=== PATIENT | female | born 1990 | race African-American/Black ===

== ENCOUNTER 2017-03-16 13:22 | Outpatient (CLI) | payer MEDICAID ==
[2017-03-16 14:08] LABS: ADD MAN DIFF? NO
[2017-03-16 14:11] LABS: BASOPHILS % 0.4 % (0.0-2.0); EOSINOPHILS % 0.4 % (0.0-7.0); HEMATOCRIT 32.3 % (37.0-47.0); LYMPHOCYTES # 1.5 10^3/ul (0.8-2.9); LYMPHOCYTES % 16.7 % (15.0-51.0); MEAN CORPUSCULAR HEMOGLOBIN 30.1 pg (29.0-33.0); MEAN CORPUSCULAR HGB CONC 34.1 g/dl (32.0-37.0); MEAN CORPUSCULAR VOLUME 88.3 fl (82.0-101.0); MEAN PLATELET VOLUME 11.3 fl (7.4-10.4); MONOCYTE # 0.7 10^3/ul (0.3-0.9); MONOCYTES % 7.7 % (0.0-11.0); NEUTROPHIL # 6.6 10^3/ul (1.6-7.5); NEUTROPHILS % 73.9 % (39.0-77.0); PLATELET COUNT 220 10^3/UL (140-415); RED BLOOD COUNT 3.66 10^6/ul (4.20-5.40); RED CELL DISTRIBUTION WIDTH 14.2 % (11.5-14.5)
[2017-03-16 14:11] LABS: WHITE BLOOD COUNT 8.9 10^3/ul (4.8-10.8)
[2017-03-16 14:21] LABS: INR 0.93; PROTIME 12.5 Sec (11.9-14.9)
[2017-03-16 14:22] LABS: ADD UMIC NO; PARTIAL THROMBOPLASTIN TIME 28.6 Sec (25.0-35.0); UR ASCORBIC ACID NEGATIVE (NEGATIVE); UR BACTERIA FEW /HPF (NONE SEEN); UR BILIRUBIN (Dip) NEGATIVE (NEGATIVE); UR BLOOD (Dip) NEGATIVE (NEGATIVE); UR CLARITY SLIGHTLY CLOUDY (CLEAR); UR COLOR YELLOW (YELLOW); UR GLUCOSE (Dip) NEGATIVE (NEGATIVE); UR KETONES (Dip) NEGATIVE (NEGATIVE); UR LEUKOCYTE ESTERASE (Dip) NEGATIVE Leu/ul (NEGATIVE); UR NITRITE (Dip) NEGATIVE (NEGATIVE); UR RBC 1 /HPF (0-5); UR SPECIFIC GRAVITY (Dip) 1.008 (1.003-1.030); UR SQUAMOUS EPITHELIAL CELL MODERATE /HPF (FEW); UR TOTAL PROTEIN (Dip) NEGATIVE (NEGATIVE); UR UROBILINOGEN (Dip) NEGATIVE (NEGATIVE); UR WBC 2 /HPF (0-5)
[2017-03-16 14:25] LABS: ALANINE AMINOTRANSFERASE 34 IU/L (13-69); ALBUMIN 3.2 g/dl (3.3-4.9); ALBUMIN/GLOBULIN RATIO 0.88; ALKALINE PHOSPHATASE 150 IU/L (42-121); ANION GAP 15 (8-16); ASPARTATE AMINO TRANSFERASE 23 IU/L (15-46); BILIRUBIN,INDIRECT 0.3 mg/dl (0-1.1); BILIRUBIN,TOTAL 0.3 mg/dl (0.2-1.3); BLOOD UREA NITROGEN 7 mg/dl (7-20); CALCIUM 9.1 mg/dl (8.4-10.2); CARBON DIOXIDE 22 mmol/L (21-31); CHLORIDE 106 mmol/L (97-110); CREATININE 0.59 mg/dl (0.44-1.00); GLUCOSE 135 mg/dl (70-220); POTASSIUM 3.6 mmol/L (3.5-5.1); SODIUM 139 mmol/L (135-144); TOTAL PROTEIN 6.8 g/dl (6.1-8.1)
== END 2017-03-16 16:27 | disposition home or self-care (01) ==
LOC: OBT 13:22 → L-D 13:29 → OBT 16:27
DX: O16.2 Unspecified maternal hypertension, second trimester (principal); Z3A.27 27 weeks gestation of pregnancy
CPT/HCPCS: 76818; 80053; 81001; 81003; 84560; 85025; 85384; 85610; 85730

== ENCOUNTER 2017-03-19 15:13 | Outpatient (CLI) | payer MEDICAID ==
[2017-03-19 16:21] LABS: ADD MAN DIFF? NO
[2017-03-19 16:24] LABS: WHITE BLOOD COUNT 8.5 10^3/ul (4.8-10.8)
[2017-03-19 16:24] LABS: BASOPHILS % 0.5 % (0.0-2.0); EOSINOPHILS % 0.4 % (0.0-7.0); HEMATOCRIT 35.4 % (37.0-47.0); HEMOGLOBIN 11.8 g/dl (12.0-16.0); LYMPHOCYTES # 1.8 10^3/ul (0.8-2.9); LYMPHOCYTES % 20.9 % (15.0-51.0); MEAN CORPUSCULAR HEMOGLOBIN 29.4 pg (29.0-33.0); MEAN CORPUSCULAR HGB CONC 33.3 g/dl (32.0-37.0); MEAN CORPUSCULAR VOLUME 88.1 fl (82.0-101.0); MEAN PLATELET VOLUME 11.7 fl (7.4-10.4); MONOCYTE # 0.7 10^3/ul (0.3-0.9); NEUTROPHIL # 5.9 10^3/ul (1.6-7.5); NEUTROPHILS % 69.1 % (39.0-77.0); PLATELET COUNT 218 10^3/UL (140-415); RED BLOOD COUNT 4.02 10^6/ul (4.20-5.40); RED CELL DISTRIBUTION WIDTH 13.9 % (11.5-14.5)
[2017-03-19 16:38] LABS: INR 0.89; PROTIME 12.1 Sec (11.9-14.9); PT RATIO 0.9
[2017-03-19 16:43] LABS: ALANINE AMINOTRANSFERASE 36 IU/L (13-69); ALBUMIN 3.3 g/dl (3.3-4.9); ALBUMIN/GLOBULIN RATIO 0.89; ALKALINE PHOSPHATASE 168 IU/L (42-121); ANION GAP 11 (8-16); ASPARTATE AMINO TRANSFERASE 27 IU/L (15-46); BILIRUBIN,INDIRECT 0.2 mg/dl (0-1.1); BILIRUBIN,TOTAL 0.2 mg/dl (0.2-1.3); BLOOD UREA NITROGEN 7 mg/dl (7-20); CALCIUM 9.6 mg/dl (8.4-10.2); CARBON DIOXIDE 24 mmol/L (21-31); CHLORIDE 105 mmol/L (97-110); CREATININE 0.66 mg/dl (0.44-1.00); GLUCOSE 93 mg/dl (70-220); PARTIAL THROMBOPLASTIN TIME 29.2 Sec (25.0-35.0); POTASSIUM 3.6 mmol/L (3.5-5.1); SODIUM 136 mmol/L (135-144); URIC ACID 5.6 mg/dl (3.1-7.9)
[2017-03-19 16:48] LABS: ADD UMIC YES; UR ASCORBIC ACID NEGATIVE (NEGATIVE); UR BACTERIA FEW /HPF (NONE SEEN); UR BILIRUBIN (Dip) NEGATIVE (NEGATIVE); UR BLOOD (Dip) 3+ mg/dL (NEGATIVE); UR CLARITY CLEAR (CLEAR); UR COLOR STRAW (YELLOW); UR GLUCOSE (Dip) NEGATIVE (NEGATIVE); UR KETONES (Dip) NEGATIVE (NEGATIVE); UR LEUKOCYTE ESTERASE (Dip) NEGATIVE Leu/ul (NEGATIVE); UR NITRITE (Dip) NEGATIVE (NEGATIVE); UR RBC 0 /HPF (0-5); UR SPECIFIC GRAVITY (Dip) 1.006 (1.003-1.030); UR SQUAMOUS EPITHELIAL CELL FEW /HPF (FEW); UR TOTAL PROTEIN (Dip) NEGATIVE (NEGATIVE); UR UROBILINOGEN (Dip) NEGATIVE (NEGATIVE); UR WBC 1 /HPF (0-5)
== END 2017-03-19 18:00 | disposition left against medical advice (07) ==
LOC: OBT 15:13 → L-D 15:14 → OBT 18:00
DX: O62.9 Abnormality of forces of labor, unspecified (principal); Z3A.37 37 weeks gestation of pregnancy
CPT/HCPCS: 36415; 76815; 76818; 80053; 81001; 84560; 85025; 85384; 85610; 85730

== ENCOUNTER 2017-03-28 08:09 | Inpatient (IN) | payer MEDICAID ==
[2017-03-28 09:58] LABS: ADD MAN DIFF? NO
[2017-03-28] MEDS ORDERED: CARBOPROST 250 MCG INJ IM ×2 (10:00→23:00)
[2017-03-28] MEDS ORDERED: BUTORPHANOL 2 MG INJ IV ×2 (10:00)
[2017-03-28] MEDS ORDERED: LIDOCAINE 1% (MPF) 30 ML INJ INJ (10:00)
[2017-03-28] MEDS ORDERED: MISOPROSTOL 200 MCG TAB PR ×2 (10:00→23:00)
[2017-03-28] MEDS ORDERED: OXYTOCIN 30 UNITS/LR 500 ML IV ×2 (10:00→23:00)
[2017-03-28] MEDS ORDERED: IBUPROFEN 600 MG TAB PO (10:00)
[2017-03-28 10:02] LABS: BASOPHILS % 0.3 % (0.0-2.0); EOSINOPHILS % 0.2 % (0.0-7.0); HEMATOCRIT 36.2 % (37.0-47.0); HEMOGLOBIN 12.1 g/dl (12.0-16.0); LYMPHOCYTES # 1.7 10^3/ul (0.8-2.9); LYMPHOCYTES % 15.5 % (15.0-51.0); MEAN CORPUSCULAR HEMOGLOBIN 29.7 pg (29.0-33.0); MEAN CORPUSCULAR HGB CONC 33.4 g/dl (32.0-37.0); MEAN CORPUSCULAR VOLUME 88.9 fl (82.0-101.0); MEAN PLATELET VOLUME 12.2 fl (7.4-10.4); MONOCYTES % 8.9 % (0.0-11.0); NEUTROPHIL # 7.9 10^3/ul (1.6-7.5); PLATELET COUNT 217 10^3/UL (140-415); RED BLOOD COUNT 4.07 10^6/ul (4.20-5.40); RED CELL DISTRIBUTION WIDTH 13.7 % (11.5-14.5)
[2017-03-28 10:02] LABS: WHITE BLOOD COUNT 10.7 10^3/ul (4.8-10.8)
[2017-03-28] MEDS: LACTATED RINGER'S 1,000 ML IV ×3 (10:02→16:29)
[2017-03-28 10:23] LABS: ADD UMIC YES; UR ASCORBIC ACID NEGATIVE (NEGATIVE); UR BACTERIA FEW /HPF (NONE SEEN); UR BILIRUBIN (Dip) NEGATIVE (NEGATIVE); UR BLOOD (Dip) 2+ mg/dL (NEGATIVE); UR CLARITY CLEAR (CLEAR); UR COLOR YELLOW (YELLOW); UR GLUCOSE (Dip) NEGATIVE (NEGATIVE); UR KETONES (Dip) NEGATIVE (NEGATIVE); UR LEUKOCYTE ESTERASE (Dip) NEGATIVE Leu/ul (NEGATIVE); UR NITRITE (Dip) NEGATIVE (NEGATIVE); UR RBC 1 /HPF (0-5); UR SPECIFIC GRAVITY (Dip) 1.012 (1.003-1.030); UR SQUAMOUS EPITHELIAL CELL FEW /HPF (FEW); UR TOTAL PROTEIN (Dip) NEGATIVE (NEGATIVE); UR UROBILINOGEN (Dip) NEGATIVE (NEGATIVE); UR WBC 1 /HPF (0-5)
[2017-03-28 10:26] LABS: ALANINE AMINOTRANSFERASE 40 IU/L (13-69); ALBUMIN 3.8 g/dl (3.3-4.9); ALBUMIN/GLOBULIN RATIO 1.08; ALKALINE PHOSPHATASE 178 IU/L (42-121); ANION GAP 17 (8-16); ASPARTATE AMINO TRANSFERASE 27 IU/L (15-46); BILIRUBIN,INDIRECT 0.3 mg/dl (0-1.1); BILIRUBIN,TOTAL 0.3 mg/dl (0.2-1.3); BLOOD UREA NITROGEN 8 mg/dl (7-20); CALCIUM 9.7 mg/dl (8.4-10.2); CARBON DIOXIDE 21 mmol/L (21-31); CHLORIDE 104 mmol/L (97-110); CREATININE 0.68 mg/dl (0.44-1.00); GLUCOSE 88 mg/dl (70-220); TOTAL PROTEIN 7.3 g/dl (6.1-8.1); URIC ACID 5.6 mg/dl (3.1-7.9)
[2017-03-28 10:27] LABS: SODIUM 138 mmol/L (135-144)
[2017-03-28 10:38] LABS: INR 0.92; PROTIME 12.4 Sec (11.9-14.9)
[2017-03-28 10:57] LABS: HEPATITIS B SURFACE ANTIGEN NEGATIVE (NEGATIVE)
[2017-03-28] MEDS ORDERED: FENTAnyl 2MCG/ML-ROPIV 0.2% 100 ML (11:53)
[2017-03-28] MEDS: FENTAnyl 2MCG/ML-ROPIV 0.2% 100 ML BAG EPI ×2 (13:22→17:36)
[2017-03-28] MEDS ORDERED: NALOXONE (0.4 MG/ML) INJ IV (13:30)
[2017-03-28] MEDS: OXYTOCIN 30 UNITS/LR 500 ML IV ×4 (14:31→22:56)
[2017-03-28] MEDS: LACTATED RINGER'S 1,000 ML IV* (22:41)
[2017-03-28] MEDS: METHYLERGONOVINE 0.2 MG INJ IM (22:57)
[2017-03-28] MEDS ORDERED: DIBUCAINE 1% 30 GM OINT PR (23:00)
[2017-03-28] MEDS ORDERED: MAGNESIUM HYDROXIDE 30ML CUP PO (23:00)
[2017-03-28] MEDS ORDERED: METHYLERGONOVINE 0.2 MG INJ IM (23:00)
[2017-03-28] MEDS ORDERED: ONDANSETRON 4 MG INJ IV (23:00)
[2017-03-28 23:25] LABS: RAPID PLASMA REAGIN NONREACTIVE (NR)
[2017-03-29] MEDS ORDERED: LABETALOL HCL 20MG INJ (01:29)
[2017-03-29] MEDS: LABETALOL HCL 20MG INJ IV (01:40)
[2017-03-29] MEDS: LANOLIN 7 GM TUBE TOP (03:35)
[2017-03-29] MEDS: LACTATED RINGER'S 1,000 ML IV* (03:35)
[2017-03-29] MEDS: WITCH HAZEL/GLYCERIN PAD PR (03:35)
[2017-03-29] MEDS: BENZOCAINE 20% 56 ML SPRAY TOP (03:35)
[2017-03-29] MEDS: IBUPROFEN 600 MG TAB PO ×3 (05:58→17:35)
[2017-03-29 09:27] LABS: ADD MAN DIFF? NO
[2017-03-29 09:32] LABS: BASOPHILS % 0.3 % (0.0-2.0); EOSINOPHILS % 0.1 % (0.0-7.0); HEMATOCRIT 32.3 % (37.0-47.0); HEMOGLOBIN 10.7 g/dl (12.0-16.0); LYMPHOCYTES # 1.7 10^3/ul (0.8-2.9); LYMPHOCYTES % 11.5 % (15.0-51.0); MEAN CORPUSCULAR HEMOGLOBIN 29.8 pg (29.0-33.0); MEAN CORPUSCULAR HGB CONC 33.1 g/dl (32.0-37.0); MEAN PLATELET VOLUME 11.8 fl (7.4-10.4); MONOCYTES % 7.1 % (0.0-11.0); NEUTROPHIL # 11.5 10^3/ul (1.6-7.5); NEUTROPHILS % 80.2 % (39.0-77.0); PLATELET COUNT 186 10^3/UL (140-415); RED BLOOD COUNT 3.59 10^6/ul (4.20-5.40); RED CELL DISTRIBUTION WIDTH 13.8 % (11.5-14.5)
[2017-03-29 09:32] LABS: WHITE BLOOD COUNT 14.3 10^3/ul (4.8-10.8)
[2017-03-29] MEDS: ACETAMINOPHEN 325 MG TAB PO ×2 (10:24→22:31)
[2017-03-29] MEDS: SENNA/DOCUSATE NA (8.6MG/50MG) TAB PO (21:04)
[2017-03-30] MEDS: IBUPROFEN 600 MG TAB PO ×3 (00:26→11:28)
[2017-03-30] MEDS: SENNA/DOCUSATE NA (8.6MG/50MG) TAB PO (11:28)
[2017-03-30] MEDS: INFLUENZA VIRUS VACCINE 0.5 ML SYG IM* (13:29)
[2017-03-30] MEDS: DIPHTH/TET/ACEL PERTUSS (ADULT) 0.5 ML VIAL IM* (13:34)
== END 2017-03-30 14:50 | disposition home or self-care (01) | DRG 775 ==
LOC: PP1 03-29 01:48 → L-D 08:09 → OBT 08:21 → L-D 08:21 → OBT 10:09 → L-D 09:30
PROC: 10E0XZZ Delivery of Products of Conception, External Approach (ICD-10-PCS; principal; 2017-03-28)
PROC: 0W8NXZZ Division of Female Perineum, External Approach (ICD-10-PCS; 2017-03-28)
DX: O80 Encounter for full-term uncomplicated delivery (principal); Z37.0 Single live birth; Z3A.39 39 weeks gestation of pregnancy
CPT/HCPCS: 62319; 80053; 81001; 84560; 85025; 85384; 85610; 85730; 86592; 86885; 86900; 86901; 87340; 90686; 90715; 99464